=== PATIENT | male | born 1960 | race Two or more races ===

== ENCOUNTER 2017-07-12 05:50 | Day surgery (SDC) | payer OTHER ==
[2017-07-12] MEDS ORDERED: FENTAnyl 50 MCG/ML VIAL (08:29)
[2017-07-12] MEDS ORDERED: MIDAZOLAM 1 MG/ML 2 ML INJ ×2 (08:29)
== END 2017-07-12 10:19 | disposition home or self-care (01) ==
LOC: GIL 05:50
DX: Z12.11 Encounter for screening for malignant neoplasm of colon (principal); D12.5 Benign neoplasm of sigmoid colon; K44.9 Diaphragmatic hernia without obstruction or gangrene; K21.9 Gastro-esophageal reflux disease without esophagitis; K29.70 Gastritis, unspecified, without bleeding; K64.8 Other hemorrhoids; E11.9 Type 2 diabetes mellitus without complications
CPT/HCPCS: 43239; 87081; 88305